=== PATIENT | female | born 1960 | race Caucasian/White ===

== ENCOUNTER 2018-03-19 12:55 | Inpatient (IN) | payer OTHER, BC ==
[~2018-03-19] VITALS: Ht 154.9 cm; Wt 51.6 kg
[2018-03-19 17:27] VITALS: BP 111/74
[2018-03-19] MEDS ORDERED: TYLENOL REGULA325 MG PO (17:50)
[2018-03-19] MEDS ORDERED: ALUM-MAG HYDRO360 ML PO (17:51)
[2018-03-19] MEDS ORDERED: COLACE100 MG PO (17:51)
[2018-03-19] MEDS ORDERED: LOVENOX30 MG/0.3 SC (17:52)
[2018-03-19] MEDS ORDERED: IBUPROFEN800 MG PO (17:52)
[2018-03-19] MEDS ORDERED: ROXICODONE5 MG PO (17:53)
[2018-03-19] MEDS ORDERED: RANITIDINE HCL150 MG PO (17:54)
[2018-03-19] MEDS ORDERED: SENNA CONCENTR8.6 MG PO (17:55)
[2018-03-19] MEDS ORDERED: LIPITOR20 MG PO (17:57)
[2018-03-19] MEDS ORDERED: CELEXA40 MG PO (17:57)
[2018-03-19] MEDS ORDERED: TOPAMAX50 MG PO (17:58)
[2018-03-19 21:35] LABS: CREATININE 0.9 MG/DL (0.6-1.3); GFR ESTIMATE (CALCULATED) > 59 mL/min/
[2018-03-20] VITALS: BP 110/64
[2018-03-20 04:20] VITALS: BP 114/60
[2018-03-20 06:35] LABS: HEMATOCRIT 29.9 % (36.0-46.0); HEMOGLOBIN 9.8 G/DL (11.9-15.5); MCH 32.5 PG (29.0-34.0); MCHC 32.8 G/DL (30.0-36.0); PLATELET COUNT 134 K/uL (156-360); RBC DIS.WIDTH-CV 14.6 % (11.8-14.6); RED BLOOD COUNT 3.02 M/uL (3.80-5.20); WHITE BLOOD COUNT 5.1 K/uL (4.1-10.2)
[2018-03-20 06:57] LABS: ALBUMIN 2.8 G/DL (3.2-4.8); ALKALINE PHOSPHATASE 109 IU/L (3-129); ALT (GPT) 37 IU/L (3-49); AST (GOT) 25 IU/L (2-34); CHLORIDE 114 MEQ/L (99-109); CREATININE 0.7 MG/DL (0.6-1.3); GFR ESTIMATE (CALCULATED) > 59 mL/min/; GLUCOSE 86 mg/dL (70-99); POTASSIUM 3.8 MEQ/L (3.7-5.4); SODIUM 142 MEQ/L (136-147); TOTAL BILIRUBIN 0.5 MG/DL (0.0-1.0); TOTAL PROTEIN 4.5 G/DL (6.4-8.3); UREA NITROGEN (BUN) 21 mg/dL (9-23)
[2018-03-20 16:00] VITALS: BP 109/66
[2018-03-21 05:29] VITALS: BP 114/67
[2018-03-21 16:00] VITALS: BP 133/76
[2018-03-22 03:59] VITALS: BP 109/69
[2018-03-22 05:38] LABS: BASOPHIL (%) 0.9 % (0-1); EOSINOPHIL (%) 5.5 % (0-5); EOSINOPHIL COUNT 0.2 K/uL (0-0.3); HEMATOCRIT 29.8 % (36.0-46.0); HEMOGLOBIN 9.7 G/DL (11.9-15.5); IMMATURE GRANULOCYTE (%) 4.5 % (0.0-0.7); LYMPHOCYTE (%) 35.5 % (15-42); LYMPHOCYTE COUNT 1.5 K/uL (1.0-2.8); MCH 31.6 PG (29.0-34.0); MCHC 32.6 G/DL (30.0-36.0); MCV 97.1 FL (83-99); MONOCYTE (%) 10.4 % (3-12); MONOCYTE COUNT 0.4 K/uL (0-0.8); NEUTROPHIL (%) 43.2 % (45-76); NEUTROPHIL COUNT 1.8 K/uL (1.8-6.4); RBC DIS.WIDTH-CV 14.4 % (11.8-14.6); RBC DIS.WIDTH-SD 50.4 % (39-53); RED BLOOD COUNT 3.07 M/uL (3.80-5.20); WHITE BLOOD COUNT 4.2 K/uL (4.1-10.2)
[2018-03-22 05:58] LABS: PLATELET COUNT 221 K/uL (156-360)
[2018-03-22 06:51] LABS: CHLORIDE 112 MEQ/L (99-109); CREATININE 0.7 MG/DL (0.6-1.3); GFR ESTIMATE (CALCULATED) > 59 mL/min/; GLUCOSE 95 mg/dL (70-99); POTASSIUM 3.5 MEQ/L (3.7-5.4); SODIUM 143 MEQ/L (136-147); UREA NITROGEN (BUN) 14 mg/dL (9-23)
[2018-03-22 07:40] LABS: THYROTROPIN (TSH) 5.4 MIU/L (0.4-5.5)
[2018-03-22 07:53] LABS: FOLIC ACID (FOLATE) 8.4 NG/ML (5.0-22.0)
[2018-03-22 16:48] VITALS: BP 115/69
[2018-03-23 04:32] VITALS: BP 112/58
[2018-03-23 15:35] VITALS: BP 116/69
[2018-03-24 06:04] VITALS: BP 107/60
[2018-03-24 15:25] VITALS: BP 103/62
[2018-03-25 05:12] LABS: BASOPHIL (%) 0.6 % (0-1); EOSINOPHIL (%) 5.8 % (0-5); EOSINOPHIL COUNT 0.4 K/uL (0-0.3); HEMATOCRIT 29.3 % (36.0-46.0); HEMOGLOBIN 9.5 G/DL (11.9-15.5); LYMPHOCYTE (%) 29.9 % (15-42); LYMPHOCYTE COUNT 2.1 K/uL (1.0-2.8); MCH 32.8 PG (29.0-34.0); MCHC 32.4 G/DL (30.0-36.0); MONOCYTE (%) 8.7 % (3-12); MONOCYTE COUNT 0.6 K/uL (0-0.8); NEUTROPHIL COUNT 3.7 K/uL (1.8-6.4); RBC DIS.WIDTH-CV 15.4 % (11.8-14.6); RBC DIS.WIDTH-SD 56.3 % (39-53)
[2018-03-25 05:18] LABS: PLATELET COUNT 335 K/uL (156-360)
[2018-03-25 06:05] LABS: CHLORIDE 108 MEQ/L (99-109); GFR ESTIMATE (CALCULATED) > 59 mL/min/; GLUCOSE 88 mg/dL (70-99); SODIUM 141 MEQ/L (136-147); UREA NITROGEN (BUN) 12 mg/dL (9-23)
[2018-03-25 06:06] LABS: POTASSIUM 5.1 MEQ/L (3.7-5.4)
[2018-03-25 06:14] VITALS: BP 101/68
[2018-03-25 15:43] VITALS: BP 111/72
[2018-03-25 23:44] LABS: IRON 54 MCG/DL (35-150)
[2018-03-26 04:41] VITALS: BP 100/51
[2018-03-26 15:04] VITALS: BP 111/74
[2018-03-27 05:56] VITALS: BP 99/55
[2018-03-27] MEDS ORDERED: ROXICODONE5 MG PO (09:43)
[2018-03-27] MEDS ORDERED: IBUPROFEN800 MG PO (09:43)
[2018-03-27] MEDS ORDERED: CALCIUM CARB1 TABLET PO (09:43)
[2018-03-27] MEDS ORDERED: VITAMIN D31000 UNIT PO (09:44)
== END 2018-03-27 15:03 | disposition home health service (06) | DRG 561 ==
LOC: 3WEST 12:55
PROVIDERS: Family Medicine Sports Medicine; Physical Medicine & Rehabilitation Pain Medicine
PROC: F07M0ZZ Range of Motion and Joint Mobility Treatment of Musculoskeletal System - Whole Body (ICD-10-PCS; principal; 2018-03-19)
DX: S22.081D Stable burst fracture of T11-T12 vertebra, subsequent encounter for fracture with routine healing (principal); V89.2XXD Person injured in unspecified motor-vehicle accident, traffic, subsequent encounter; Y92.410 Unspecified street and highway as the place of occurrence of the external cause; R41.82 Altered mental status, unspecified; R26.9 Unspecified abnormalities of gait and mobility; S06.9X0D Unspecified intracranial injury without loss of consciousness, subsequent encounter; M54.9 Dorsalgia, unspecified; E78.5 Hyperlipidemia, unspecified; M19.90 Unspecified osteoarthritis, unspecified site; R51 Headache; R41.3 Other amnesia; M48.04 Spinal stenosis, thoracic region; E87.6 Hypokalemia; D64.9 Anemia, unspecified; E55.9 Vitamin D deficiency, unspecified; S22.20XD Unspecified fracture of sternum, subsequent encounter for fracture with routine healing
CPT/HCPCS: 73564; 80048; 80053; 82306; 82565; 82607; 82746; 83540; 84443; 85025; 85027; 92523 GN; 97110 GO; 97530 GP; G0515 GN; J1650